=== PATIENT | male | born 1980 | race Two or more races ===

== ENCOUNTER 2021-10-04 10:48 | Outpatient (CLI) | payer OTHER | END 2021-10-04 10:58 | disposition home or self-care (01) | LOC: PPH VACUNA 10:48 | PROVIDERS: ATTEND Emergency Medicine Pediatric Emergency Medicine | DX: Z23 Encounter for immunization (principal) ==

== ENCOUNTER 2022-03-12 08:35 | Outpatient (CLI) | payer OTHER | END 2022-03-12 10:58 | disposition home or self-care (01) | LOC: MRI 08:35 | PROVIDERS: ATTEND General Practice | DX: M25.512 Pain in left shoulder (principal); M25.511 Pain in right shoulder | CPT/HCPCS: 73218 ==

== ENCOUNTER 2022-05-09 09:26 | Outpatient (CLI) | payer OTHER | END 2022-05-09 09:45 | disposition home or self-care (01) | LOC: TOM 09:26 | DX: K40.90 Unilateral inguinal hernia, without obstruction or gangrene, not specified as recurrent (principal) ==

== ENCOUNTER 2022-05-14 22:57 | Outpatient (CLI) | payer OTHER | END 2022-05-14 23:00 | disposition home or self-care (01) | LOC: LAB 22:57 | PROVIDERS: ATTEND Obstetrics & Gynecology | DX: Z20.828 Contact with and (suspected) exposure to other viral communicable diseases (principal); Z20.818 Contact with and (suspected) exposure to other bacterial communicable diseases ==